=== PATIENT | female | born 1995 | race Caucasian/White ===

== ENCOUNTER 2020-07-24 01:05 | Emergency (ER) | payer MEDICAID ==
[~2020-07-24] VITALS: Ht 157.5 cm; Wt 47.6 kg
== END 2020-07-24 13:40 | disposition home or self-care (01) ==
LOC: ED 01:05
DX: R45.851 Suicidal ideations (principal); F10.129 Alcohol abuse with intoxication, unspecified; Y90.8 Blood alcohol level of 240 mg/100 ml or more
CPT/HCPCS: 80053; 80176; 81001; 84443; 84703; 85025; 99285

== ENCOUNTER 2021-08-12 15:44 | Emergency (ER) | payer OTHER, MEDICAID ==
[~2021-08-12] VITALS: Ht 157.5 cm; Wt 69.7 kg
[2021-08-12] MEDS ORDERED: HYDROCODON-ACE1 EA11 PO (19:07)
== END 2021-08-12 19:33 | disposition home or self-care (01) ==
LOC: ED 15:44
DX: S30.0XXA Contusion of lower back and pelvis, initial encounter (principal); S20.229A Contusion of unspecified back wall of thorax, initial encounter; V86.59XA Driver of other special all-terrain or other off-road motor vehicle injured in nontraffic accident, initial encounter; Z88.5 Allergy status to narcotic agent; Z88.8 Allergy status to other drugs, medicaments and biological substances
CPT/HCPCS: 36415; 72070; 72100; 81001; 84703; 85025; 85060; 96361; 96374; 96375; 96376; 99284-25; A9270; J1885; J3010; J7030

== ENCOUNTER 2022-01-01 20:12 | Emergency (ER) | payer MEDICAID ==
[~2022-01-01] VITALS: Ht 157.5 cm; Wt 70.7 kg
[~2022-01-01 20:12] MED LIST: HYDROCODON-ACE1 EA11 PO
[2022-01-01] MEDS ORDERED: VENTOLIN HFA18 GM INH (20:29)
[2022-01-01] MEDS ORDERED: K-TAB ER20 MEQ PO (21:29)
[2022-01-01] MEDS ORDERED: VITAFOL-OB+DHA1 EACH PO (21:29)
--- NOTE | 2022-01-03 20:54 | EKG ---
[facility] [address] [facility] [place] [address] Signed Sinus tachycardia Otherwise normal ECG No previous ECGs available Confirmed by Luda Goldman MD () on 01/03/2022 8:54:02 PM Electronically Signed By: LUDA GOLDMAN MD 01/03/222053 PATIENT NAME: JESSIE PRECIADO Electrocardiogram DATE OF : [birth year] PHYSICIAN: LUDA GOLDMAN MD REPORT #: [id number] REPORT IS CONFIDENTIAL AND NOT TO BE RELEASED WITHOUT AUTHORIZATION
== END 2022-01-01 22:01 | disposition home or self-care (01) ==
LOC: ED 20:12
DX: O99.891 Other specified diseases and conditions complicating pregnancy (principal); R00.2 Palpitations; Z88.5 Allergy status to narcotic agent; Z88.8 Allergy status to other drugs, medicaments and biological substances; Z3A.00 Weeks of gestation of pregnancy not specified
CPT/HCPCS: 36415; 80053; 83735; 84443; 84484; 84702; 84703; 85025; 93005; 93010; 99284-25; A9270; G0480

== ENCOUNTER 2023-08-18 09:12 | Emergency (ER) | payer OTHER ==
[~2023-08-18] VITALS: Ht 157.5 cm; Wt 69.0 kg
[~2023-08-18 09:12] MED LIST changes: +CEFDINIR300 MG PO; +HYDROCODON-ACE1 EA10 PO; +K-TAB ER20 MEQ PO; +ONDANSETRON ODT4 MG PO; +VENTOLIN HFA18 GM INH; +VITAFOL-OB+DHA1 EACH PO
--- OUTSIDE RECORDS SUMMARY | 2023-08-18 09:20 | XMS ---
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 - Patient eloped before treatment completed. - Patient with suicidal and/or homicidal ideations eloped. Details: Patient LWBS CRITERIA MET - Group Notification CARE PROVIDERS -, [facility] Dentist: Electro Mechanical Engineer [facility] PHONE: [phone] -, [place]- Dentist: Electro Mechanical Engineer [facility] PHONE: [phone] Care Guidelines exist for the following facilities: [facility] ( 03/04/2015 ) Lauren VISIT COUNT (12 MO.) 3 EMILY Gooden TOTAL 3 NOTE: Visits indicate total known visits. ED/UCC VISIT TRACKING (12 MO.) 08/18/2023 09:12 EMILY [place] TYPE: Emergency COMPLAINT: - VOMITING 02/27/2023 11:36 EM[place] TYPE: Emergency COMPLAINT: - FLANK PAIN DIAGNOSES: - Allergy status to narcotic agent - Allergy status to other drugs, medicaments and biological substances - Encounter for screening for COVID-19 - Tubulo-interstitial nephritis, not specified as acute or chronic - Unspecified abdominal pain 02/24/2023 09:17 EMILY [place] TYPE: Emergency COMPLAINT: - R FLANK PAIN, HEADACHE, FEVER INPATIENT VISIT TRACKING (12 MO.) No inpatient visits to display in this time frame [email or web address]
[2023-08-18 09:43] LABS: BASOPHILS 0.4 % (0-2); EOSINOPHILS 0.9 % (0-6); HEMATOCRIT 32.6 % (35.0-50.0); HEMOGLOBIN 11.1 g/dL (12.0-18.0); LYMPHOCYTES 19.7 % (24-44); MCH 32.9 (27-36); MCV 96.9 fl (81-99); MONOCYTES 6.3 % (0-12); NEUTROPHILS 72.7 % (39-80); PLATELET COUNT 272 K/uL (140-440); RBC 3.36 M/ul (4.3-5.7); RDW 15.5 (10.5-15.0)
[2023-08-18] MEDS ORDERED: ondansetron HCL 4 MG/2 ML VIAL IV ONE (09:45)
[2023-08-18] MEDS ORDERED: droPERidol 5 MG/2 ML VIAL IV ONE (09:45)
[2023-08-18] MEDS ORDERED: SODIUM CHLORIDE 0.9% 1,000 ML IV PRN (09:45)
[2023-08-18 10:13] LABS: ALBUMIN 3.4 g/dL (3.4-5.0); ALBUMIN/GLOBULIN RATIO 0.83 (1.1-2.4); ANION GAP 17.8 (7-21); BILIRUBIN, TOTAL 0.2 ng/dL (0.2-1.0); BUN/CREATININE RATIO 8.62 (6.0-28.6); CALCIUM 8.4 mg/dL (8.5-10.1); CREATININE, SERUM 0.58 mg/dL (0.55-1.02); POTASSIUM 3.8 mmol/L (3.5-5.1); PROTEIN, TOTAL 7.5 g/dL (6.4-8.2)
[2023-08-18] MEDS ORDERED: ONDANSETRON ODT8 MG PO (12:44)
[2023-08-18] MEDS ORDERED: REGLAN10 MG PO (12:44)
[2023-08-18 13:02] VITALS: BP 96/52
== END 2023-08-18 13:03 | disposition home or self-care (01) ==
LOC: ED 09:12
PROVIDERS: Emergency Medicine
DX: R11.2 Nausea with vomiting, unspecified (principal); Z88.8 Allergy status to other drugs, medicaments and biological substances; Z88.5 Allergy status to narcotic agent
CPT/HCPCS: 36415; 80053; 83690; 84702; 85025; 96361; 96374; 96375; 99284-25; J1790; J2405; J7030

== ENCOUNTER 2023-11-23 10:05 | Inpatient (IN) | payer OTHER ==
[~2023-11-23] VITALS: Ht 157.5 cm; Wt 68.0 kg
[~2023-11-23 10:05] MED LIST changes: +ONDANSETRON ODT8 MG PO; +REGLAN10 MG PO
[2023-11-23] MEDS ORDERED: OXYTOCIN/DEXTROSE 5% 20 UNITS/100 ML BAG ONE (10:14)
[2023-11-23] MEDS ORDERED: HYDROmorphone HCL 1 MG/ML SYR ONE (10:32)
[2023-11-23] MEDS ORDERED: ACETAMINOPHEN 325 MG TAB PO PRN (10:45)
[2023-11-23] MEDS ORDERED: HYDROCORTISONE ACETATE 25 MG SUPP PR PRN (10:45)
[2023-11-23] MEDS ORDERED: OXYCODONE HCL 5 MG TAB PO PRN (10:45)
[2023-11-23] MEDS ORDERED: HYDROCODONE/ACETA 5/325 TAB PO PRN (10:45)
[2023-11-23] MEDS ORDERED: OXYCODONE/APAP 5/325 TAB PO PRN (10:45)
[2023-11-23] MEDS ORDERED: CALCIUM CARBONATE 500 MG CHEW PO PRN ×2 (10:45)
[2023-11-23] MEDS ORDERED: LIDOCAINE 2% VISCOUS 6 ML SYR TOP ONE ×2 (10:45)
[2023-11-23] MEDS ORDERED: OXYTOCIN/0.9 % SODIUM CHLORIDE 500 ML IV SCH (10:45)
[2023-11-23] MEDS ORDERED: MAGNESIUM HYDROXIDE/AL HYDROX 30 ML CUP PO PRN ×2 (10:45)
[2023-11-23] MEDS ORDERED: OXYTOCIN/DEXTROSE 5% 20 UNITS/100 ML BAG IV SCH (10:45)
[2023-11-23] MEDS ORDERED: MAGNESIUM HYDROXIDE 30 ML UDC PO PRN (10:45)
[2023-11-23] MEDS ORDERED: IBUPROFEN 600 MG TAB PO PRN (10:45)
[2023-11-23] MEDS ORDERED: BENZOCAINE 60 ML AEROSOL TOP PRN (10:45)
[2023-11-23] MEDS ORDERED: WITCH HAZEL/GLYCERIN 1 EA PAD TOP PRN (10:45)
[2023-11-23] MEDS ORDERED: ondansetron HCL 4 MG/2 ML VIAL IV PRN (10:45)
[2023-11-23 10:57] LABS: HEMATOCRIT 29.7 % (35.0-50.0); HEMOGLOBIN 9.7 g/dL (12.0-18.0); MCHC 32.7 g/dl (30-36); MCV 94.9 fl (81-99); RBC 3.13 M/ul (4.3-5.7); RDW 16.2 (10.5-15.0)
[2023-11-23] MEDS ORDERED: HYDROmorphone HCL 1 MG/ML SYR IV ONE (11:00)
[2023-11-23] MEDS ORDERED: DEXTROSE 10% 500 ML IV SCH (11:00)
[2023-11-23] MEDS ORDERED: GENTAMICIN SULFATE 20 MG/2 ML VIAL IV ONE (11:00)
[2023-11-23] MEDS ORDERED: AMPICILLIN SOD 500 MG/10 ML VIAL IV ONE (11:15)
--- NOTE | 2023-11-23 11:17 | NUR ---
RESPONDED TO RAPID RESPONSE PAGE. PROVIDED SUPPORTIVE PRESENCE, ESCORTED SUPPORT PERSON FROM EXECUTIVE PRODUCER TO PT ROOM, PROVIDED PRAYER.
[2023-11-23 11:25] LABS: ABO O
[2023-11-23 11:26] LABS: ANTIBODY SCREEN NEGATIVE; RH POSITIVE
[2023-11-23] MEDS ORDERED: GENTAMICIN SULFATE 340 MG in DEXTROSE 5% 100 ML IV ONE (11:30)
[2023-11-23 11:38] LABS: PH, VENOUS 7.462 (7.31-7.41)
[2023-11-23 11:43] LABS: AMPHETAMINES, URINE NEGATIVE (NEGATIVE); BARBITURATES, URINE NEGATIVE (NEGATIVE); BENZODIAZEPINE, URINE NEGATIVE (NEGATIVE); BUPRENORPHINE, URINE NEGATIVE (NEGATIVE); CANNABINOID, URINE POSITIVE (NEGATIVE); COCAINE, URINE NEGATIVE (NEGATIVE); ECSTASY, URINE NEGATIVE (NEGATIVE); FENTANYL, URINE NEGATIVE (NEGATIVE); METHADONE, URINE NEGATIVE (NEGATIVE); OPIATES, URINE POSITIVE (NEGATIVE); OXYCODONE, URINE NEGATIVE (NEGATIVE); PHENCYCLIDINE, URINE NEGATIVE (NEGATIVE)
--- NOTE | 2023-11-23 17:41 | PR ---
[facility] [address] [place], [place] [address] Signed PP Progress Notes Datetime Report Generated by CPN: 11/23/2023 17:41 SUBJECTIVE: [id number] Pain: Within Normal Limits Nausea/Vomiting: Denies Flatus: Yes Bowel Movement: No Vital Signs: [id number] Vital Signs: Reviewed; Within Normal Limits Cardiovascular: Normal Respiratory: Normal Abdomen/Uterus: Normal Lochia: Normal Vulva/Perineum: Not Done Breasts: Not Done CVA Tenderness: Normal Extremities: Normal Incision: Not Applicable Progress: Not Applicable Exam Comments: Fundus firm U-2 nontender IMPRESSION/PLAN/PROCEDURES: [id number] Impression: Normal Progression Plan: Discharge Progress Notes: Pt seen and examined. Doing well. Ambulating, voiding, and tolerating full diet. Pain and lochia minimal. No concerns. Desires d/c home. Undecided on pp contraception but not planning on future . All questions answered. Reviewed d/c instructions and medications Signing Physician: Wyatt Howard DO Copies: ~ *Electronically Signed* 11/23/23 8490 WYATT HOWARD (OSKAR) DO PATIENT NAME: JESSIE PRECIADO PROGRESS NOTE DATE OF : [birth year] PHYSICIAN: WYATT HOWARD (OSKAR) DO RPT #: [id number] REPORT IS CONFIDENTIAL AND NOT TO BE RELEASED WITHOUT AUTHORIZATION
[2023-11-23] MEDS ORDERED: SENNOSIDES/DOCUSATE 1 EA TAB PO SCH (21:00)
[2023-11-24 12:53] LABS: RAPID PLASMA REAGIN (RPR) Non Reactive (Non Reactive)
[2023-11-24 14:53] LABS: HEPATITIS B SURFACE ANTIGEN Negative (Negative)
--- NOTE | 2023-11-25 17:21 | PATH ---
[facility] [address] [place], [place] [address] Signed SPECIMEN(S): A PLACENTA SPECIMEN SOURCE: A. PLACENTA CLINICAL HISTORY: Gestational Age: 32 weeks, Infants weight: 1850, Score 1 Minute: Five, Score 5 Minute: Eight, Score 10 Minute: Not provided. ABO/Rh(D): Not provided, Rhogam: Not provided, Antibody Screen: Not provided. Specific issues of concern: Not provided. Indications for submitting to pathology: Premature delivery less than 34-week gestation. FINAL PATHOLOGIC DIAGNOSIS: Placenta: - Immature 379-gram placenta with three-vessel umbilical cord. - Diffuse prominent acute chorioamnionitis and funisitis with focal slight vasculitis. - Villous and perivillous fibrin deposition and focal calcification. - Negative for significant placental disc infarction. JVR:hussein MICROSCOPIC EXAMINATION: Histologic sections of all submitted blocks are examined by light microscopy. These findings, together with the gross examination, support the pathologic diagnosis. GROSS DESCRIPTION: The specimen, labeled and designated "Hua Preciado, placenta," is received fresh and placed in formalin and consists of hernández discoid placenta with the following parameters: Umbilical cord: Insertion eccentric, measurement 2.9 x 1.5 cm; trivascular. Additional segment of umbilical cord that is 18.4 x 1.3 cm. Cord coiling index (per 10 cm): Two. Lesions: Not grossly identified. Membranes: Insertion site: Marginal, pale pink translucent. Fragmented. Other: Not grossly identified. Chorionic Plate: Normal radiating vascular pattern, blue-purple and shiny. Lesions: Not grossly identified. Other: Not grossly identified. Maternal Surface: Normal cotyledons, fragmented. Lesions: Not grossly identified. Measurement: 17.6 x 15.8 x 2.7 cm. 379 grams. PATIENT NAME: JESSIE PRECIADO PATHOLOGY DATE OF : [birth year] REPORT #: [id number] PHYSICIAN: GILLIAN YBARRA PCP: HOLDEN VILLAGRAN REPORT IS CONFIDENTIAL AND NOT TO BE RELEASED WITHOUT AUTHORIZATION [facility] [address] [place], [place] [address] Signed Cut Surface: Pale pink and spongy. Lesions: Not grossly identified. Basal plate fibrin 0.1 cm in thickness. Other Findings: Not grossly identified. Cassette Summary: (A1) membranes and umbilical cord (A2) placenta parenchyma (A3) placenta parenchyma (A4) placenta parenchyma FB (under the direct supervision of a pathologist) The Gross Description was prepared using a voice recognition system. The report was reviewed for accuracy; however, sound-alike word errors, addition and/or deletions may occur. If there is any question about this report, please contact Client Services. PERFORMING LABORATORY: Technical component was performed by [facility], [address] [place] [id number] (CLIA# [id number]). Professional interpretation was performed by [facility], [address] [place] [id number] (CLIA#: [id number]). Diagnostician: Shahram Shah MD Pathologist Electronically Signed 11/25/2023 Copies: ~ PATIENT NAME: JESSIE PRECIADO PATHOLOGY DATE OF : [birth year] REPORT #: [id number] PHYSICIAN: GILLIAN PATHOLOGY PCP: HOLDEN VILLAGRAN REPORT IS CONFIDENTIAL AND NOT TO BE RELEASED WITHOUT AUTHORIZATION
== END 2023-11-23 18:20 | disposition home or self-care (01) | DRG 805 ==
LOC: FBCO 10:05 → FBC 10:20
PROVIDERS: Pediatrics; ADMIT Obstetrics & Gynecology; ATTEND Obstetrics & Gynecology
PROC: 10E0XZZ Delivery of Products of Conception, External Approach (ICD-10-PCS; principal; 2023-11-23)
DX: O62.3 Precipitate labor (principal); O60.14X0 Preterm labor third trimester with preterm delivery third trimester, not applicable or unspecified; Z37.0 Single live birth; Z3A.32 32 weeks gestation of pregnancy; O69.81X0 Labor and delivery complicated by cord around neck, without compression, not applicable or unspecified; O99.334 Smoking (tobacco) complicating childbirth; F17.210 Nicotine dependence, cigarettes, uncomplicated
CPT/HCPCS: 36415; 80307; 82803; 83036; 85027; 86762; 86850; 86900; 86901; 87340; A9270; J1170; J2405

== ENCOUNTER 2024-03-08 17:45 | Emergency (ER) | payer OTHER ==
[~2024-03-08] VITALS: Ht 157.5 cm; Wt 69.9 kg
--- OUTSIDE RECORDS SUMMARY | 2024-03-08 17:51 | XMS ---
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 - Patient eloped before treatment completed. - Patient with suicidal and/or homicidal ideations eloped. Details: Patient LWBS CRITERIA MET - Group Notification CARE PROVIDERS -, [facility] Dentist: Data Warehouse Architect [facility] PHONE: [phone] -, [place]- Dentist: Data Warehouse Architect [facility] PHONE: [phone] Care Guidelines exist for the following facilities: [facility] ( 03/04/2015 ) Lauren VISIT COUNT (12 MO.) 2 EMILY Linares [facility] TOTAL 3 NOTE: Visits indicate total known visits. ED/UCC VISIT TRACKING (12 MO.) 03/08/2024 17:45 EMILY [place] TYPE: Emergency COMPLAINT: - MEDICAL CLEARANCE 11/29/2023 21:59 [facility] TYPE: Emergency DIAGNOSES: - Urinary tract infection, site not specified - Abdominal Pain - pain - Vaginal Pain 08/18/2023 09:12 EMILY [place] [place] TYPE: Emergency COMPLAINT: - VOMITING DIAGNOSES: - Allergy status to narcotic agent - Allergy status to other drugs, medicaments and biological substances - Nausea with vomiting, unspecified INPATIENT VISIT TRACKING (12 MO.) 11/23/2023 10:20 EMILY Niño [place] TYPE: [facility] COMPLAINT: - LABOR DIAGNOSES: - 32 weeks gestation of - 32 weeks gestation of - Labor and delivery complicated by cord around neck, without compression, not applicable or unspecified - Labor and delivery complicated by cord around neck, without compression, not applicable or unspecified - Nicotine dependence, cigarettes, uncomplicated - Nicotine dependence, cigarettes, uncomplicated - Precipitate labor - Precipitate labor - labor third trimester with delivery third trimester, not applicable or unspecified - Single live - Single live - Smoking (tobacco) complicating childbirth - Smoking (tobacco) complicating childbirth [email or web address]
[2024-03-08] MEDS ORDERED: LORazepam 2 MG/ML VIAL IM ONE (18:30)
[2024-03-08] MEDS ORDERED: OLANZapine 10 MG TABDIS PO ONE (18:30)
[2024-03-08] MEDS ORDERED: diphenhydrAMINE HCL 50 MG/ML VIAL IM ONE (18:30)
[2024-03-08] MEDS ORDERED: HALOPERIDOL LACTATE 5 MG/ML VIAL IM ONE (18:30)
[2024-03-08 19:05] LABS: BASOPHILS 0.9 % (0-2); EOSINOPHILS 1.2 % (0-6); HEMATOCRIT 40.5 % (35.0-50.0); HEMOGLOBIN 13.6 g/dL (12.0-18.0); LYMPHOCYTES 55.5 % (24-44); MCH 30.9 (27-36); MCHC 33.5 g/dl (30-36); MCV 92.1 fl (81-99); MONOCYTES 4.8 % (0-12); NEUTROPHILS 37.6 % (39-80); PLATELET COUNT 354 K/uL (140-440); RDW 14.5 (10.5-15.0)
[2024-03-08 19:34] LABS: ACETAMINOPHEN 0 ug/mL (10-30); ALBUMIN 3.9 g/dL (3.4-5.0); ALBUMIN/GLOBULIN RATIO 0.91 (1.1-2.4); ALKALINE PHOSPHATASE 73 U/L (46-116); ALT (SGPT) 22 U/L (14-59); ANION GAP 18.7 (7-21); AST (SGOT) 21 U/L (15-37); BILIRUBIN, TOTAL 0.5 ng/dL (0.2-1.0); BUN/CREATININE RATIO 10.29 (6.0-28.6); CALCIUM 8.6 mg/dL (8.5-10.1); CARBON DIOXIDE 23 mmol/L (21-32); CHLORIDE 107 mmol/L (98-107); CREATININE, SERUM 0.68 mg/dL (0.55-1.02); GLOMERULAR FILTRATION RATE,EST 119 mL/min (>60); POTASSIUM 3.7 mmol/L (3.5-5.1); PROTEIN, TOTAL 8.2 g/dL (6.4-8.2); SALICYLATE 4.5 mg/dL (2.8-20.0); TSH, 3RD GENERATION 1.379 uIU/mL (0.358-3.740); UREA NITROGEN 7 mg/dL (7-18)
[2024-03-08 19:38] LABS: ALCOHOL, MEDICAL 331 ng/dL (<3)
[2024-03-09 06:46] LABS: BILIRUBIN, URINE NEGATIVE (negative); BLOOD/HGB, URINE LARGE (Negative); KETONE, URINE NEGATIVE (Negative); LEUK ESTERASE, URINE NEGATIVE (negative); NITRITE, URINE POSITIVE (negative)
[2024-03-09 06:48] LABS: BACTERIA, URINE 3+ /hpf (negative); CASTS, URINE NONE SEEN \\lpf; COLLECTION TYPE, URINE CLEAN CATCH; CRYSTALS, URINE NONE SEEN (0-1+); REFLEX CULTURE, URINE Yes (No); WHITE BLOOD CELLS, URINE 21-40 /HPF (0-5)
[2024-03-09 07:01] LABS: AMPHETAMINES, URINE NEGATIVE (NEGATIVE); BARBITURATES, URINE NEGATIVE (NEGATIVE); BENZODIAZEPINE, URINE NEGATIVE (NEGATIVE); BUPRENORPHINE, URINE NEGATIVE (NEGATIVE); CANNABINOID, URINE POSITIVE (NEGATIVE); COCAINE, URINE NEGATIVE (NEGATIVE); ECSTASY, URINE NEGATIVE (NEGATIVE); FENTANYL, URINE NEGATIVE (NEGATIVE); METHADONE, URINE NEGATIVE (NEGATIVE); OPIATES, URINE NEGATIVE (NEGATIVE); OXYCODONE, URINE NEGATIVE (NEGATIVE); PHENCYCLIDINE, URINE NEGATIVE (NEGATIVE)
[2024-03-09] MEDS ORDERED: MACROBID 100 M100 MG PO (07:36)
[2024-03-09 08:00] VITALS: BP 114/79
[2024-03-09] MEDS ORDERED: NITROFURANTOIN MONOHYD MACROCR 100 MG CAP PO SCH (08:00)
[2024-03-15] MEDS ORDERED: VIVITROL380 MG IM (15:09)
== END 2024-03-09 08:01 | disposition home or self-care (01) ==
LOC: ED 17:45
PROVIDERS: Emergency Medicine
DX: R45.851 Suicidal ideations (principal); N39.0 Urinary tract infection, site not specified; Z88.5 Allergy status to narcotic agent; Z88.8 Allergy status to other drugs, medicaments and biological substances
CPT/HCPCS: 36415; 80053; 80307; 81001; 84443; 84703; 85025; 87077; 87088; 87186; 96372; 99285-25; A9270; G0480; J1200; J1630; J2060

== ENCOUNTER 2024-03-20 06:55 | Day surgery (SDC) | payer OTHER ==
[2024-03-15 15:25] VITALS: BP 119/60
[~2024-03-20] VITALS: Ht 157.5 cm; Wt 62.0 kg
--- NOTE | ~2024-03-20 | OR ---
[facility] [address] [place], [place] [address] Draft DATE OF OPERATION: 03/20/2024 SURGEON: Wyatt Howard DO PREOPERATIVE DIAGNOSES: Desires salpingectomy. POSTOPERATIVE DIAGNOSES: Desires salpingectomy. PROCEDURE PERFORMED: Laparoscopic bilateral salpingectomy. ANESTHESIA: General. ESTIMATED BLOOD LOSS: 5 mL. SPECIMENS: Bilateral fallopian tubes. DRAINS: Alvarenga to gravity. COMPLICATIONS: None. FINDINGS: Normal external genitalia with normal clitoris urethral meatus, bilateral [place]'s, Bartholin's glands. Normal vagina and cervix with some pelvic relaxation at the apex noted. On laparoscopy, normal uterus, tubes, and ovaries with no evidence of endometriosis or other pelvic pathology or adhesions. Hemostatis at end of procedure. INDICATIONS: Ms. Preciado is a very pleasant 29-year-old female, who presents for bilateral salpingectomy. She reports that she has completed her fertility and desires reduction in lifetime risk of ovarian cancer. We reviewed the procedure in detail including the permanent nature of this procedure. Risks, benefits, and alternatives were discussed in detail with the patient. The patient understands and wished to proceed with the PATIENT NAME: JESSIE PRECIADO OPERATIVE REPORT DATE OF : [birth year] REPORT #: [id number] PHYSICIAN: WYATT HOWARD (OSKAR) PCP: HOLDEN VILLAGRAN-Di REPORT IS CONFIDENTIAL AND NOT TO BE RELEASED WITHOUT AUTHORIZATION [facility] [address] [place], [place] [address] Draft procedure. DESCRIPTION OF PROCEDURE: The patient was taken the OR. A time-out was performed to confirm correct patient and correct procedure. General anesthesia was adequately established. The patient was prepped and draped in the dorsal lithotomy position with her feet in Yellofin stirrups. ICPs were on running and no preoperative antibiotics or heparin was indicated. A Alvarenga catheter was inserted. A weighted speculum was placed in vagina and the anterior lip of the cervix was grasped with an Allis clamp. The cervix was gently dilated using Hegar dilators. A Hulka uterine manipulator was placed. The surgeon's gloves were changed and attention was turned to the abdomen. The base of the umbilicus was infiltrated with 0.25% Marcaine with epinephrine and a 5 mm stab incision was performed with an 11 blade. A 5 mm trocar was placed under direct visualization without complication. Pneumoperitoneum was established without difficulty and survey of the abdomen and pelvis was performed. 5 mm front office assistant ports were placed in the left lower and right lower quadrants under direct visualization without complication. The left fallopian tube was grasped at the fimbriated end, divided along the mesosalpinx using LigaSure device. Dissection along the mesosalpinx was performed to the cornu and the tube was amputated at the cornu. The tube was delivered through the trocar and sent to pathology for further evaluation. The process was repeated on the right without difficulty. Excellent hemostasis was appreciated. Pneumoperitoneum was reduced. Trocars were removed and trocar sites were repaired using 3-0 Vicryl Rapide. The Hulka uterine manipulator and the Alvarenga catheter were removed and the patient was taken to PACU in good and stable condition. Sponge, needle, and instrument counts were correct x2 at the end the procedure. Wyatt Howard DO JDW/MODL /[id number] Copies: PATIENT NAME: OZZYMIMIJESSIETOMASZ AGARWAL OPERATIVE REPORT DATE OF : [birth year] REPORT #: [id number] PHYSICIAN: WYATT HOWARD DO (JD) PCP: HOLDEN VILLAGRAN REPORT IS CONFIDENTIAL AND NOT TO BE RELEASED WITHOUT AUTHORIZATION [address] [address] Draft ~ PATIENT NAME: MARIETTA PRECIADOTOMASZ AGARWAL OPERATIVE REPORT DATE OF : [birth year] REPORT #: [id number] PHYSICIAN: WYATT HOWARD (JD): HOLDEN VILLAGRAN CNC OPERATOR PROGRAMMER-C REPORT IS CONFIDENTIAL AND NOT TO BE RELEASED WITHOUT AUTHORIZATION
[2024-03-20 06:12] VITALS: BP 103/71
[~2024-03-20 06:55] MED LIST changes: +DEXAMETHASONE SOD PHOS 4 MG/ML VIAL ONE; +FAMOTIDINE 20 MG/ 2 ML VIAL ONE; +KETOROLAC TROMETHAMINE 30 MG/ML VIAL ONE; +LACTATED RINGER'S 1,000 ML IV ONE; +LACTATED RINGER'S 1,000 ML IV SCH; +LIDOCAINE HCL 4% 5 ML AMP ONE; +MACROBID 100 M100 MG PO; +METOCLOPRAMIDE HCL 10 MG/2 ML SDV ONE; +MIDAZOLAM HCL 2 MG/2 ML VIAL ONE; +ROCURONIUM BROMIDE 50 MG/5 ML SYR ONE; +SUCCINYLCHOLINE IN 0.9% NACL 200 MG/10 ML SYRINGE ONE; +SUGAMMADEX SODIUM 200 MG/2 ML ML ONE; +VIVITROL380 MG IM; +fentaNYL citrate 100 MCG/2 ML VIAL ONE; +ondansetron HCL 4 MG/2 ML VIAL ONE; +propofoL 200 MG/20 ML VIAL ONE
[2024-03-20] MEDS ORDERED: MIDAZOLAM HCL 2 MG/2 ML VIAL IV ONE ×2 (07:00→07:30)
[2024-03-20] MEDS ORDERED: IBLOOD GLUCOSE TEST STRIP 1 EA TEST VI PRN ×2 (07:00→11:15)
[2024-03-20] MEDS ORDERED: LIDOCAINE HCL 1% 5 ML SDV INJ ONE (07:00)
--- NOTE | 2024-03-20 07:26 | NUR ---
0645-PT STATES INCREASED ANXIETY AND ASKING FOR MEDICATION. VO PER AMANDA DELANEY FOR VERSED 1-6MG PRN.
--- NOTE | 2024-03-20 07:30 | NUR ---
0700-1MG OF VERSED GIVEN PER EMAR. 0710-PT STATES MINIMAL IMPROVEMENT WITH MEDICATION. 0715-1MG OF VERSED GIVEN PER EMAR. 0726-PT STATES FEELING BETTER. CALL LIGHT WITHIN REACH.
--- NOTE | 2024-03-20 07:58 | NUR ---
PT LAYING IN BED ON HER PHONE. STATES ANXIETY IS BETTER. NO OTHER NEEDS AT THIS TIME. CALL LIGHT WITHIN REACH.
[2024-03-20] MEDS ORDERED: MIDAZOLAM HCL 2 MG/2 ML VIAL IV PRN (08:45)
--- NOTE | 2024-03-20 08:50 | NUR ---
0850-PT STATES ANXIETY IS INCREASING AND WOULD MEDICATION. 0855-ORDER SENT TO PHARMACY. 0905-NEW BAG OF LR HANGING. VERSED GIVEN PER EMAR. 0915-PT STATES FEELING BETTER. NO OTHER NEEDS AT THIS TIME. CALL LIGHT WITHIN REACH.
[2024-03-20] MEDS ORDERED: dexmedeTOMIDine HCl 200 MCG/2 ML VIAL ONE (10:05)
[2024-03-20] MEDS ORDERED: SEVOFLURANE 250 ML BTL INH ONE (10:16)
[2024-03-20] MEDS ORDERED: MAGNESIUM HYDROXIDE/AL HYDROX 30 ML CUP PO PRN (10:45)
[2024-03-20] MEDS ORDERED: ondansetron HCL 4 MG/2 ML VIAL IV PRN ×2 (10:45→11:15)
[2024-03-20] MEDS ORDERED: OXYCODONE/APAP 5/325 TAB PO PRN (10:45)
[2024-03-20] MEDS ORDERED: SIMETHICONE 125 MG TABLET CHEWABLE PO PRN (10:45)
[2024-03-20] MEDS ORDERED: FAMOTIDINE 20 MG/ 2 ML VIAL IV PRN (10:45)
[2024-03-20] MEDS ORDERED: PROCHLORPERAZINE EDISYLATE 10 MG/2 ML VIAL IV PRN ×2 (10:45→11:15)
[2024-03-20] MEDS ORDERED: NALOXONE HCL 0.4 MG SYR IV PRN ×2 (10:45→11:15)
[2024-03-20] MEDS ORDERED: HYDROmorphone HCL 1 MG/ML SYR IV PRN (11:00)
[2024-03-20] MEDS ORDERED: fentaNYL citrate 50 MCG/ML SDV IV PRN (11:15)
[2024-03-20] MEDS ORDERED: METOCLOPRAMIDE HCL 10 MG/2 ML SDV IV PRN (11:15)
[2024-03-20] MEDS ORDERED: KETOROLAC TROMETHAMINE 30 MG/ML VIAL IV PRN (11:15)
[2024-03-20] MEDS ORDERED: droPERidol 5 MG/2 ML VIAL IV PRN (11:15)
[2024-03-20] MEDS ORDERED: PHENYLEPHRINE HCL 10 MG/ML VIAL ONE (11:15)
[2024-03-20] MEDS ORDERED: ePHEDrine sulfate 50 MG/ML AMP ONE (11:18)
--- NOTE | 2024-03-20 11:24 | NUR ---
03/20/24 1124 Tiff Abreu 1049- PT ARRIVES TO THE PACU WITH AN ORAL AIRWAY IN PLACE ON 10 OF O2 VIA MASK. PT IS NON REACTIVE TO VERBAL AND TACTILE STIMULI. PT REQUIRES A CHIN LIFT TO MAINTAIN AIRWAY FOR A SHORT TIME, THEN THE HEAD WAS REPOSTIIONED. PT BREATHING THEN EVEN AND UNLABORED. ALL MONITORS PUT IN PLACE. BP IS LOW AND CUE WORKER MADE AWARE. LR INFUSING IN L FOREARM. WILL CONTINUE TO MONITOR. 1050- CUE WORKER, AMANDA GAVE MEDICATION FOR LOW BP. HR DECREASES TO LOW 30S. WILL CONTINUE TO MONITOR, CUE WORKER AWARE AND AT BEDSIDE. 1051- PT TITRATED DOWN TO 6L OF O2 VIA MASK. HR INCREASED TO MID 50S. PT IS NON REACTIVE AND SHOWING NO APPARENT SIGNS OF DISTRESS. HEART RYTHYM NOTED TO BE IN BIGEMINY WITH PULSE OX READING 29 AND 3 LEAD READING IN THE MID 30S. 1052- PT RETURNS TO SINUS RYTHYM. HEART RATE SLOWLY INCREASES. 1055- BP INCREASES. 1100- HR SLOWLY INCREASED TO HIGH 40S. ORAL AIRWAY REMAINS IN PLACE WITH BREATHING EVEN AND UNLABORED.
--- NOTE | 2024-03-20 12:20 | NUR ---
PT BACK TO ROOM FROM PACU ON . RECEIVED REPORT FROM LUANA LARA. PT LAYING IN BED WITH EYES CLOSED. ANSWERES QUESTIONS. RATES PAIN A 3/10 " LONG I DONT MOVE". RESP EVEN AND UNLABORED. O2 SATS DECREASE TO 88%. ENCOURAGED PT TO TAKE DEEP BREATHS, PT STATES "IT HURTS". EXPLAINED THE BENEFITS OF DEEP BREATHING. PT ABLE DO THIS. O2 SATS INCREASES TO MID 90'S. WILL DO CONTINUOUS PULSE OX. NO OTHER NEEDS AT THIS TIME. CALL LIGHT WITHIN REACH.
[2024-03-20 12:27] VITALS: BP 104/81
[2024-03-20] MEDS ORDERED: SIMETHICONE 125 MG TABLET CHEWABLE PO SCH (13:00)
[2024-03-20 13:30] VITALS: BP 117/92
--- NOTE | 2024-03-20 13:35 | NUR ---
PT LAYING ON RIGHT SIDE. EYES CLOSED, AWAKES EASILY WITH VERBAL STIMULI. RESP EVEN AND UNLABORED. O2 SATS REMAIN IN THE MID 90'S. RATES PAIN 3/10 AND THIS IS TOLERABLE FOR HER. INCREASED IN PAIN WITH MOVEMENT. NO OTHER NEEDS AT THIS TIME. CALL LIGHT WITHIN REACH.
[2024-03-20] MEDS ORDERED: IBUPROFEN 800 MG TAB PO SCH (14:00)
[2024-03-20 14:38] VITALS: BP 103/77
--- NOTE | 2024-03-20 14:47 | NUR ---
1430-PT SITTING AT SIDE OF BED. PT AMBULATES TO RESTROOM. GAIT STEADY AND TOLERATED WELL. 1435-PT BACK TO BED. RATES PAIN 5/10. STATES FEELS MORE PAIN "IN HER CERVIX". RESP EVEN AND UNLABORED. PROVIDED PT WITH PUDDING AND ICE WATER. CALL LIGHT WITHIN REACH.
--- NOTE | 2024-03-20 14:58 | NUR ---
PAIN MEDICATION GIVEN PER EMAR.
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
[2024-03-20 16:01] VITALS: BP 99/70
== END 2024-03-20 16:05 | disposition home or self-care (01) ==
LOC: DS 06:55
PROVIDERS: ATTEND Obstetrics & Gynecology
PROC: 0UT74ZZ Resection of Bilateral Fallopian Tubes, Percutaneous Endoscopic Approach (ICD-10-PCS; principal; 2024-03-20 09:00)
DX: Z40.03 Encounter for prophylactic removal of fallopian tube(s) (principal); N83.8 Other noninflammatory disorders of ovary, fallopian tube and broad ligament; F17.210 Nicotine dependence, cigarettes, uncomplicated; Z88.5 Allergy status to narcotic agent; Z88.8 Allergy status to other drugs, medicaments and biological substances; Z91.013 Allergy to seafood; Z90.49 Acquired absence of other specified parts of digestive tract
CPT/HCPCS: 00840; 88302; A9270; J0330; J1100; J1885; J2250; J2371; J2405; J2704; J2765; J3010; J3490; J7121

== ENCOUNTER 2024-07-05 00:14 | Emergency (ER) | payer OTHER ==
[~2024-07-05] VITALS: Ht 157.5 cm; Wt 62.0 kg
[~2024-07-05 00:14] MED LIST changes: -DEXAMETHASONE SOD PHOS 4 MG/ML VIAL ONE; -FAMOTIDINE 20 MG/ 2 ML VIAL ONE; -KETOROLAC TROMETHAMINE 30 MG/ML VIAL ONE; -LACTATED RINGER'S 1,000 ML IV ONE; -LACTATED RINGER'S 1,000 ML IV SCH; -LIDOCAINE HCL 4% 5 ML AMP ONE; -METOCLOPRAMIDE HCL 10 MG/2 ML SDV ONE; -MIDAZOLAM HCL 2 MG/2 ML VIAL ONE; -ROCURONIUM BROMIDE 50 MG/5 ML SYR ONE; -SUCCINYLCHOLINE IN 0.9% NACL 200 MG/10 ML SYRINGE ONE; -SUGAMMADEX SODIUM 200 MG/2 ML ML ONE; -fentaNYL citrate 100 MCG/2 ML VIAL ONE; -ondansetron HCL 4 MG/2 ML VIAL ONE; -propofoL 200 MG/20 ML VIAL ONE
--- OUTSIDE RECORDS SUMMARY | 2024-07-05 00:21 | XMS ---
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 Events 1 event(s) in the past 18 months Most recent security events: Elopement at [facility] 02/24/2023 09:17 Details: Patient LWBS CRITERIA MET - Group Notification CARE PROVIDERS -, [facility] Dentist: Bank Vault Attendant Current [place] PHONE: [phone] -[place]- Dentist: Bank Vault Attendant [facility] PHONE: [phone] Loli Nichols Physician Exterior Designer Aleksandar HERNANDEZ PHONE: [phone] Care Guidelines exist for the following facilities: [facility] ( 03/04/[facility] ) Lauren VISIT COUNT (12 MO.) 3 EMILY Linares [facility] TOTAL 4 NOTE: Visits indicate total known visits. ED/UCC VISIT TRACKING (12 MO.) 07/05/2024 00:15 EMILY [place]ño [place] TYPE: Emergency COMPLAINT: - WEAKNESS 03/08/2024 17:45 EMILY [place] TYPE: Emergency COMPLAINT: - MEDICAL CLEARANCE DIAGNOSES: - Allergy status to narcotic agent - Allergy status to other drugs, medicaments and biological substances - Suicidal ideations - Urinary tract infection, site not specified 11/29/2023 21:59 [facility] TYPE: Emergency DIAGNOSES: - Urinary tract infection, site not specified - Abdominal Pain - pain - Vaginal Pain 08/18/2023 09:12 EMILY [place] TYPE: Emergency COMPLAINT: - VOMITING DIAGNOSES: - Allergy status to narcotic agent - Allergy status to other drugs, medicaments and biological substances - Nausea with vomiting, unspecified INPATIENT VISIT TRACKING (12 MO.) 11/23/2023 10:20 EMILY Niño [place] TYPE: [facility] COMPLAINT: - LABOR DIAGNOSES: - [...] complicating childbirth - Smoking (tobacco) complicating childbirth [email or web address]
[2024-07-05 00:39] LABS: BASOPHILS 0.7 % (0-2); EOSINOPHILS 2.7 % (0-6); HEMATOCRIT 35.9 % (35.0-50.0); HEMOGLOBIN 12.1 g/dL (12.0-18.0); LYMPHOCYTES 42.5 % (24-44); MCH 32.7 (27-36); MCHC 33.8 g/dl (30-36); MCV 96.9 fl (81-99); MONOCYTES 8.9 % (0-12); NEUTROPHILS 45.2 % (39-80); PLATELET COUNT 242 K/uL (140-440); RBC 3.71 M/ul (4.3-5.7); RDW 16.9 (10.5-15.0)
[2024-07-05] MEDS ORDERED: diazePAM 10 MG/2 ML SYR IV ONE (00:45)
[2024-07-05] MEDS ORDERED: THIAMINE HCL 200 MG/2 ML VIAL IV ONE (00:45)
[2024-07-05] MEDS ORDERED: 1/2 NORMAL SALINE IV ONE (00:45)
[2024-07-05] MEDS ORDERED: FOLIC ACID 1 MG/0.2 ML ML IV ONE (00:45)
[2024-07-05] MEDS ORDERED: MULTIVITAMINS THERAPEUTIC 1 EA TAB PO ONE (00:45)
[2024-07-05 00:54] LABS: ALBUMIN 3.3 g/dL (3.4-5.0); ALBUMIN/GLOBULIN RATIO 0.85 (1.1-2.4); ALCOHOL, MEDICAL <3 ng/dL (<3); ALKALINE PHOSPHATASE 98 U/L (46-116); ALT (SGPT) 37 U/L (14-59); ANION GAP 11.6 (7-21); AST (SGOT) 35 U/L (15-37); BILIRUBIN, TOTAL 0.4 mg/dL (0.2-1.0); BUN/CREATININE RATIO 7.21 (6.0-28.6); CALCIUM 8.4 mg/dL (8.5-10.1); CARBON DIOXIDE 28 mmol/L (21-32); CHLORIDE 100 mmol/L (98-107); CREATININE, SERUM 0.97 mg/dL (0.55-1.02); GLOMERULAR FILTRATION RATE,EST 80 mL/min (>60); MAGNESIUM 1.5 mg/dL (1.8-2.4); POTASSIUM 3.6 mmol/L (3.5-5.1); PROTEIN, TOTAL 7.2 g/dL (6.4-8.2); UREA NITROGEN 7 mg/dL (7-18)
[2024-07-05] MEDS ORDERED: SODIUM CHLORIDE 0.9% 1,000 ML IV PRN (01:00)
[2024-07-05] MEDS ORDERED: MAGNESIUM SULFATE 2 GM/50 ML BAG IV ONE (01:45)
[2024-07-05] MEDS ORDERED: CHLORDIAZEPOXIDE 25 MG CAP PO ONE (02:00)
[2024-07-05] MEDS ORDERED: NALTREXONE HCL50 MG PO (03:02)
[2024-07-05] MEDS ORDERED: ONDANSETRON ODT8 MG PO (03:02)
[2024-07-05] MEDS ORDERED: CHLORDIAZEPOXID25 MG PO (03:02)
[2024-07-05] MEDS ORDERED: LORazepam 1 MG HOME.PACK PO ONE (03:15)
[2024-07-05] MEDS ORDERED: ONDANSETRON 4 MG HOME.PACK SL ONE (03:15)
[2024-07-05] MEDS ORDERED: ondansetron HCL 4 MG/2 ML VIAL IV ONE (05:30)
[2024-07-05 05:41] VITALS: BP 112/75
== END 2024-07-05 05:41 | disposition home or self-care (01) ==
LOC: ED 00:14
PROVIDERS: Family Medicine
DX: F10.139 Alcohol abuse with withdrawal, unspecified (principal); Z88.5 Allergy status to narcotic agent; Z88.8 Allergy status to other drugs, medicaments and biological substances
CPT/HCPCS: 36415; 80053; 83735; 85025; 96365; 96375; 99284-25; A9270; G0480; J2405; J3360; J3411; J3475; J7030

== ENCOUNTER 2024-07-25 08:35 | Emergency (ER) | payer OTHER ==
[~2024-07-25] VITALS: Ht 157.5 cm; Wt 62.0 kg
[~2024-07-25 08:35] MED LIST changes: +CHLORDIAZEPOXID25 MG PO; +NALTREXONE HCL50 MG PO
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
[2024-07-25] MEDS ORDERED: PROCHLORPERAZINE EDISYLATE 10 MG/2 ML VIAL IV ONE (09:00)
[2024-07-25] MEDS ORDERED: SODIUM CHLORIDE 0.9% 1,000 ML IV PRN (09:00)
[2024-07-25] MEDS ORDERED: KETOROLAC TROMETHAMINE 15 MG/ML VIAL IV ONE (10:30)
[2024-07-25] MEDS ORDERED: HALOPERIDOL LACTATE 5 MG/ML VIAL IV ONE (10:30)
[2024-07-25 11:28] VITALS: BP 129/77
== END 2024-07-25 11:30 | disposition home or self-care (01) ==
LOC: ED 08:35
DX: S06.0X9A Concussion with loss of consciousness of unspecified duration, initial encounter (principal); Z88.8 Allergy status to other drugs, medicaments and biological substances; Z88.5 Allergy status to narcotic agent; Z79.899 Other long term (current) drug therapy; W18.30XA Fall on same level, unspecified, initial encounter
CPT/HCPCS: 36415; 70450; 84703; 96361; 96374; 96375; 99284-25; J0780; J1630; J1885; J7030

== ENCOUNTER 2024-09-08 08:36 | Emergency (ER) | payer OTHER ==
[~2024-09-08] VITALS: Ht 157.5 cm; Wt 62.0 kg
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
[2024-09-08] MEDS ORDERED: SODIUM CHLORIDE 0.9% 1,000 ML IV ONE (09:00)
[2024-09-08] MEDS ORDERED: LORazepam 2 MG/ML VIAL IV ONE (09:00)
[2024-09-08] MEDS ORDERED: ondansetron HCL 4 MG TAB PO ONE (09:00)
[2024-09-08 09:04] LABS: BASOPHILS 1.2 % (0.1-1.2); EOSINOPHILS 0.6 % (0.7-5.8); HEMATOCRIT 38.5 % (34.1-44.9); HEMOGLOBIN 13.4 g/dL (11.2-15.7); LYMPHOCYTES 30.2 % (19.3-51.7); MCH 34.7 PG (25.6-32.2); MCHC 34.8 g/dL (32.2-35.5); MCV 99.7 fL (79.4-94.8); MONOCYTES 5.7 % (4.7-12.5); NEUTROPHILS 61.7 % (34.0-71.1); PLATELET COUNT 223 K/uL (182-369); RBC 3.86 M/uL (3.93-5.22)
[2024-09-08 09:15] LABS: ALBUMIN 4.3 g/dL (3.4-5.0); ALBUMIN/GLOBULIN RATIO 1.1 (1.1-2.4); BILIRUBIN, TOTAL 0.7 mg/dL (0.2-1.0); BUN/CREATININE RATIO 9.52 (6.0-28.6); CALCIUM 8.6 mg/dL (8.5-10.1); CREATININE, SERUM 1.05 mg/dL (0.55-1.02); PROTEIN, TOTAL 8.2 g/dL (6.4-8.2)
[2024-09-08] MEDS ORDERED: ondansetron HCL 4 MG/2 ML VIAL IV ONE (09:15)
[2024-09-08] MEDS ORDERED: POTASSIUM CHLORIDE 10 MEQ/100 ML BAG IV SCH (09:45)
[2024-09-08] MEDS ORDERED: LORazepam 1 MG TAB PO ONE (12:00)
[2024-09-08 12:42] VITALS: BP 119/79
== END 2024-09-08 12:42 | disposition home or self-care (01) ==
LOC: ED 08:36
PROVIDERS: Emergency Medicine
DX: F10.10 Alcohol abuse, uncomplicated (principal); E87.6 Hypokalemia; Z88.8 Allergy status to other drugs, medicaments and biological substances; Z88.5 Allergy status to narcotic agent
CPT/HCPCS: 36415; 80053; 80307; 83690; 84703; 85025; 96365; 96366; 96375; 99285-25; A9270-GY; G0480; J2060; J2405; J3480; J7030

== ENCOUNTER 2024-09-27 17:28 | Emergency (ER) | payer OTHER ==
[~2024-09-27] VITALS: Ht 157.5 cm; Wt 59.5 kg
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
[2024-09-27] MEDS ORDERED: LACTATED RINGER'S 1,000 ML IV ONE (18:30)
[2024-09-27] MEDS ORDERED: HYDROmorphone HCL 1 MG/ML SYR IV ONE (18:30)
[2024-09-27 18:54] LABS: BASOPHILS 1.0 % (0.1-1.2); EOSINOPHILS 0.2 % (0.7-5.8); LYMPHOCYTES 38.6 % (19.3-51.7); MCH 34.4 PG (25.6-32.2); MCHC 34.7 g/dL (32.2-35.5); MCV 99.2 fL (79.4-94.8); MONOCYTES 7.3 % (4.7-12.5); NEUTROPHILS 52.7 % (34.0-71.1); RBC 3.98 M/uL (3.93-5.22)
[2024-09-27 19:24] LABS: ALCOHOL, MEDICAL 201 ng/dL (<3); ALT (SGPT) 24 U/L (14-59); AST (SGOT) 25 U/L (15-37); GLOMERULAR FILTRATION RATE,EST 84 mL/min (>60); PROTEIN, TOTAL 8.8 g/dL (6.4-8.2); UREA NITROGEN 9 mg/dL (7-18)
[2024-09-27] MEDS ORDERED: KETOROLAC TROMETHAMINE 30 MG/ML VIAL IV ONE (20:15)
[2024-09-27] MEDS ORDERED: CYCLOBENZAPRINE HCL 10 MG TAB PO ONE (21:30)
[2024-09-27] MEDS ORDERED: TRAMADOL HCL50 MG PO (21:54)
[2024-09-27] MEDS ORDERED: CYCLOBENZAPRINE HCL 10 MG HOME.PACK PO ONE (22:00)
[2024-09-27 22:11] VITALS: BP 138/87
== END 2024-09-27 22:12 | disposition home or self-care (01) ==
LOC: ED 17:28
PROVIDERS: Emergency Medicine
DX: S16.1XXA Strain of muscle, fascia and tendon at neck level, initial encounter (principal); S29.012A Strain of muscle and tendon of back wall of thorax, initial encounter; V49.9XXA Car occupant (driver) (passenger) injured in unspecified traffic accident, initial encounter; Z88.8 Allergy status to other drugs, medicaments and biological substances
CPT/HCPCS: 36415; 70450; 71260; 72125; 74177; 80053; 80307; 84702; 85025; 86850; 86900; 86901; 99284-25; G0480; J1171; J1885; J2405; J7121; Q9967

== ENCOUNTER 2024-11-05 21:47 | Emergency (ER) | payer OTHER ==
[~2024-11-05] VITALS: Ht 157.5 cm; Wt 64.0 kg
[~2024-11-05 21:47] MED LIST changes: +TRAMADOL HCL50 MG PO
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
[2024-11-05] MEDS ORDERED: ACETAMINOPHEN-1 EAC1 PO (21:57)
[2024-11-05] MEDS ORDERED: ONDANSETRON ODT4 MG PO (21:57)
[2024-11-05 21:59] LABS: MCH 33.2 PG (25.6-32.2); MCHC 34.6 g/dL (32.2-35.5); MCV 96.0 fL (79.4-94.8); RBC 3.97 M/uL (3.93-5.22)
[2024-11-05 22:11] LABS: LYMPHOCYTES, MANUAL DIFF 70; MONOCYTES, MANUAL DIFF 3; NEUTROPHILS, MANUAL DIFF 27
[2024-11-05 22:26] LABS: ALCOHOL, MEDICAL 286 ng/dL (<3); ALT (SGPT) 16 U/L (14-59); AST (SGOT) 18 U/L (15-37); GLOMERULAR FILTRATION RATE,EST 98 mL/min (>60); PROTEIN, TOTAL 7.3 g/dL (6.4-8.2); TSH, 3RD GENERATION 1.891 uIU/mL (0.358-3.740); UREA NITROGEN 9 mg/dL (7-18)
[2024-11-05] MEDS ORDERED: POTASSIUM CHLORIDE 10 MEQ/100 ML BAG IV SCH (23:15)
[2024-11-06 00:28] LABS: GLOMERULAR FILTRATION RATE,EST 119.0 mL/min (>60); UREA NITROGEN 9.0 mg/dL (7-18)
[2024-11-06] MEDS ORDERED: MAGNESIUM SULFATE 4 GM/100 ML BAG IV ONE (00:45)
[2024-11-06] MEDS ORDERED: METOCLOPRAMIDE HCL 10 MG/2 ML SDV IV ONE (02:15)
[2024-11-06 03:20] LABS: GLOMERULAR FILTRATION RATE,EST 122.0 mL/min (>60); UREA NITROGEN 10.0 mg/dL (7-18)
[2024-11-06] MEDS ORDERED: ONDANSETRON 4 MG TAB ODT SL ONE ×2 (06:45→10:30)
[2024-11-06 12:55] LABS: BLOOD/HGB, URINE NEGATIVE (Negative); KETONE, URINE NEGATIVE (Negative); LEUK ESTERASE, URINE NEGATIVE (negative); NITRITE, URINE NEGATIVE (negative)
[2024-11-06 13:16] LABS: AMPHETAMINES, URINE NEGATIVE (NEGATIVE); BARBITURATES, URINE NEGATIVE (NEGATIVE); BENZODIAZEPINE, URINE NEGATIVE (NEGATIVE); CANNABINOID, URINE POSITIVE (NEGATIVE); COCAINE, URINE NEGATIVE (NEGATIVE); ECSTASY, URINE NEGATIVE (NEGATIVE); FENTANYL, URINE NEGATIVE (NEGATIVE); METHADONE, URINE NEGATIVE (NEGATIVE); OPIATES, URINE POSITIVE (NEGATIVE); OXYCODONE, URINE NEGATIVE (NEGATIVE); PHENCYCLIDINE, URINE NEGATIVE (NEGATIVE)
[2024-11-06] MEDS ORDERED: LORazepam 2 MG/ML VIAL ONE (18:53)
[2024-11-06] MEDS ORDERED: LORazepam 1 MG TAB PO ONE (20:45)
[2024-11-07] MEDS ORDERED: ACETAMINOPHEN 325 MG TAB PO ONE (11:15)
[2024-11-07] MEDS ORDERED: LORazepam 1 MG TAB PO ONE (11:15)
[2024-11-07 14:51] VITALS: BP 128/77
--- NOTE | 2024-11-08 18:21 | EKG ---
[facility] [address] [facility] [place] [address] Signed Sinus tachycardia Otherwise normal ECG When compared with ECG of 01-JAN-2022 20:22, No significant change was found Confirmed by Aaron Clement DO ([id number]) on 11/08/2024 6:21:45 PM Electronically Signed By: AARON CLEMENT DO 11/08/241820 PATIENT NAME: JESSIE PRECIADO STEFANO Electrocardiogram DATE OF : 89 PHYSICIAN: AARON CLEMENT DO REPORT #: [id number] REPORT IS CONFIDENTIAL AND NOT TO BE RELEASED WITHOUT AUTHORIZATION
--- NOTE | 2024-11-08 18:22 | EKG ---
[facility] [address] [facility] [place] [address] Signed Normal sinus rhythm with sinus arrhythmia Possible Anterior infarct , age undetermined Abnormal ECG Confirmed by Aaron Clement DO ([id number]) on 11/08/2024 6:22:03 PM Electronically Signed By: AARON CLEMENT DO 11/08/241821 PATIENT NAME: JESSIE PRECIADO STEFANO Electrocardiogram DATE OF : [birth year] PHYSICIAN: AARON CLEMENT DO REPORT #: [id number] REPORT IS CONFIDENTIAL AND NOT TO BE RELEASED WITHOUT AUTHORIZATION
== END 2024-11-07 14:53 ==
LOC: ED 21:47
PROVIDERS: Emergency Medicine
DX: T39.1X2A Poisoning by 4-Aminophenol derivatives, intentional self-harm, initial encounter (principal); R40.0 Somnolence; Z88.8 Allergy status to other drugs, medicaments and biological substances; Z88.5 Allergy status to narcotic agent; Z79.899 Other long term (current) drug therapy
CPT/HCPCS: 36415; 80048; 80053; 80307; 81003; 83735; 84443; 84703; 85025; 93005; 93010; 96365; 96366; 96372; 96375; 99285-25; A9270; A9270-GY; G0480; J1790; J2405; J2765; J3475; J3480

== ENCOUNTER 2024-11-20 20:13 | Emergency (ER) | payer OTHER ==
[~2024-11-20] VITALS: Ht 157.5 cm; Wt 64.0 kg
[~2024-11-20 20:13] MED LIST changes: +ACETAMINOPHEN-1 EAC1 PO
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
[2024-11-20 20:30] LABS: BASOPHILS 0.9 % (0.1-1.2); EOSINOPHILS 2.0 % (0.7-5.8); LYMPHOCYTES 43.2 % (19.3-51.7); MCH 32.8 PG (25.6-32.2); MCHC 34.0 g/dL (32.2-35.5); MCV 96.5 fL (79.4-94.8); MONOCYTES 10.0 % (4.7-12.5); NEUTROPHILS 43.6 % (34.0-71.1); RBC 3.69 M/uL (3.93-5.22)
[2024-11-20 20:37] LABS: BLOOD/HGB, URINE NEGATIVE (Negative); KETONE, URINE NEGATIVE (Negative); LEUK ESTERASE, URINE NEGATIVE (negative); NITRITE, URINE NEGATIVE (negative)
[2024-11-20 20:41] LABS: INR 0.98 (0.80-1.30); PROTIME 12.3 Sec (11.2-14.2)
[2024-11-20 20:42] LABS: EPITHELIAL CELLS, URINE SQUAMOUS 1+ /lpf (0-1+)
[2024-11-20 20:43] LABS: BACTERIA, URINE RARE /hpf (negative); CASTS, URINE NONE SEEN \\lpf; CRYSTALS, URINE NONE SEEN (0-1+); REFLEX CULTURE, URINE No (No)
[2024-11-20 20:46] LABS: ALCOHOL, MEDICAL <3 ng/dL (<3); ALT (SGPT) 11 U/L (14-59); AST (SGOT) 19 U/L (15-37); GLOMERULAR FILTRATION RATE,EST 102 mL/min (>60); PROTEIN, TOTAL 7.7 g/dL (6.4-8.2); UREA NITROGEN 9 mg/dL (7-18)
[2024-11-20 20:51] LABS: AMPHETAMINES, URINE NEGATIVE (NEGATIVE); BARBITURATES, URINE NEGATIVE (NEGATIVE); BENZODIAZEPINE, URINE NEGATIVE (NEGATIVE); CANNABINOID, URINE POSITIVE (NEGATIVE); COCAINE, URINE NEGATIVE (NEGATIVE); ECSTASY, URINE NEGATIVE (NEGATIVE); FENTANYL, URINE NEGATIVE (NEGATIVE); METHADONE, URINE NEGATIVE (NEGATIVE); OPIATES, URINE NEGATIVE (NEGATIVE); OXYCODONE, URINE NEGATIVE (NEGATIVE); PHENCYCLIDINE, URINE NEGATIVE (NEGATIVE)
[2024-11-20] MEDS ORDERED: LACTATED RINGER'S 1,000 ML IV ONE (21:30)
[2024-11-20] MEDS ORDERED: LORazepam 2 MG/ML VIAL IV ONE (21:30)
[2024-11-20] MEDS ORDERED: MAGNESIUM OXIDE 400 MG TABLET PO ONE (21:45)
[2024-11-20] MEDS ORDERED: THIAMINE HCL 100 MG TAB PO ONE (21:45)
[2024-11-20] MEDS ORDERED: MULTIVITAMINS THERAPEUTIC 1 EA TAB PO ONE (21:45)
[2024-11-20] MEDS ORDERED: FOLIC ACID 1 MG TAB PO ONE (21:45)
[2024-11-20] MEDS ORDERED: CHLORDIAZEPOXID25 MG PO (22:40)
[2024-11-20 23:00] VITALS: BP 115/80
== END 2024-11-20 23:00 | disposition home or self-care (01) ==
LOC: ED 20:13
PROVIDERS: Internal Medicine
DX: F10.10 Alcohol abuse, uncomplicated (principal); Z88.8 Allergy status to other drugs, medicaments and biological substances; Z88.5 Allergy status to narcotic agent; Z79.899 Other long term (current) drug therapy
CPT/HCPCS: 36415; 80053; 80307; 81001; 83690; 83735; 85025; 85610; 96374; 99284-25; G0480; J2060; J7121